=== PATIENT | male | born 1980 | race Hispanic/Latino ===

== ENCOUNTER 2022-01-09 06:00 | Day surgery (SDC) | payer BC ==
[2022-01-07 15:32] LABS: BASOPHILS % (AUTO) 0.5 % (0.0-5.0); EOSINOPHILS % (AUTO) 0.9 % (0.0-8.0); HEMATOCRIT 43.8 % (42-54); MEAN CORPUSCULAR HEMOGLOBIN 27.1 pg (27.0-33.0); MEAN CORPUSCULAR HGB CONC 32.4 g/dL (32.0-36.0); MEAN CORPUSCULAR VOLUME 83.6 fL (79-99); MONOCYTES % (AUTO) 7.9 % (3.0-13.0); NEUTROPHILS % (AUTO) 59.4 % (40.0-77.0); PLATELET COUNT (AUTO) 297 K/uL (130-400); RED BLOOD CELL COUNT(AUTO) 5.24 MIL/uL (4.50-6.20); RED CELL DISTRIBUTION WIDTH 12.4 % (11.0-15.5); WHITE BLOOD COUNT (AUTO) 10.6 K/uL (4.8-10.8)
[2022-01-07 15:43] LABS: CREATININE 0.9 mg/dL (0.5-1.5); POTASSIUM 4.7 mmol/L (3.5-5.1)
[2022-01-08 10:28] VITALS: BP 125/57
[~2022-01-09] VITALS: Ht 172.7 cm; Wt 164.8 kg
[2022-01-09] VITALS (13 sets, daily range): BP systolic 97–136; BP diastolic 45–86
[~2022-01-09 06:00] MED LIST: ATOR10TA69 PO; CETI10CA5 PO; LABE200T7 PO; LISI40TA9 PO; METF-526 PO; OMEP20CA12 PO; VITAMIN D3 PO
[2022-01-09] MEDS: CEFAZOLIN SODIUM 1 GM VIAL IVP SCH ×2 (06:00→08:24)
[2022-01-09] MEDS ORDERED: 0.9%NACL 1000ML 1,000 ML IV ONE (06:17)
[2022-01-09] MEDS ORDERED: LIDOCAINE HCL 1% 20 ML VIAL ONE (06:40)
[2022-01-09] MEDS ORDERED: BUPIVACAINE/PF 0.5% 30ML VIAL ONE (06:40)
[2022-01-09] MEDS ORDERED: MIDAZOLAM HCL 1 MG/ML 2ML VIAL ONE (07:55)
[2022-01-09] MEDS ORDERED: ONDANSETRON 4MG INJ ONE (07:55)
[2022-01-09] MEDS ORDERED: PROPOFOL 10 MG/ML 20ML VIAL IV ONE ×2 (07:56→09:00)
[2022-01-09] MEDS ORDERED: ROCURONIUM 10MG/1ML SYR 10 MG/ML ML ONE (07:56)
[2022-01-09] MEDS ORDERED: FENTANYL CITRATE PF 50 MCG/1 ML 5ML AMP IV ONE (07:56)
[2022-01-09] MEDS ORDERED: BACITRACIN 28.4 GM OINT TP ONE (08:14)
[2022-01-09] MEDS ORDERED: EPHEDRINE SULFATE 50 MG/ML AMPULE ONE (08:21)
[2022-01-09] MEDS ORDERED: CEFAZOLIN SODIUM 1 GM VIAL ONE (08:31)
[2022-01-09] MEDS ORDERED: FENTANYL CITRATE PF 50 MCG/1 ML 2ML VIAL ONE (09:03)
[2022-01-09] MEDS ORDERED: NEOSTIGMINE 5MG/5ML SYR IV ONE (09:03)
[2022-01-09] MEDS ORDERED: GLYCOPYRROLATE 1 MG/5 ML SYRINGE ONE ×2 (09:03→09:24)
== END 2022-01-09 10:45 | disposition home or self-care (01) ==
LOC: DAH 06:00
PROVIDERS: ATTEND Urology
DX: Z30.2 Encounter for sterilization (principal); I10 Essential (primary) hypertension; E66.01 Morbid (severe) obesity due to excess calories; K21.9 Gastro-esophageal reflux disease without esophagitis; E11.9 Type 2 diabetes mellitus without complications; Z80.0 Family history of malignant neoplasm of digestive organs; Z79.84 Long term (current) use of oral hypoglycemic drugs; Z79.01 Long term (current) use of anticoagulants; Z79.899 Other long term (current) drug therapy
CPT/HCPCS: 80048; 85025; 87426; 36415; 55250; 82948 ×2; A6260; J7120; J3010 ×2; J0690 ×2; J3490 ×4; J2710; J7030; J2250; J2704 ×2; J2405; A4215; A4223; A4222; A4221; A4663; A4600